=== PATIENT | female | born 1955 | race Caucasian/White ===

== ENCOUNTER 2017-01-03 21:16 | Emergency (ER) | payer SELFPAY ==
[~2017-01-03] VITALS: Ht 165.1 cm; Wt 70.2 kg
[~2017-01-03 21:16] MED LIST: CLON.1 PO; DOXY100T PO; HYDR-3580 PO; SULF1TAB47 PO
[2017-01-03 21:38] VITALS: BP 194/91; PULSE 127; RESP 20; TEMP 98.4; O2SAT 100
[2017-01-03] MEDS ORDERED: SODIUM CHLOR 0.9% 1000 ML INJ 1,000 ML IV SCH (21:49)
--- NOTE | 2017-01-03 21:56 | PD ---
HPI Chief Complaint: General Weakness Time Seen by Provider: 21:40 Travel History International Travel<30 days: No Contact w/Intl Traveler<30days: No Traveled to known affect area: No History of Present Illness HPI The patient is a 61-year-old female who presents to the emergency department with a friend for decreased mobility and generalized weakness. The friend states that the patient has been living with him for the last 2-3 years after she got kicked out of her last residents. The patient has a previous history of drug use, was using Roxicet, however, has not used opiates in the last 2-3 years she has been living with him. The friend states that the patient has had decreased mobility over the last several weeks, is not getting out of bed, and has difficulty ambulating with her walker. He states she has not been showering, combing her hair, or getting out of bed to eat over the last several days. He states that the patient wants to lie in bed, watch TV, and eating chocolate. He states when the patient tries ambulate with a walker her legs get shaky and she collapses. The patient denies any physical complaints, denies any chest pain, shortness of breath, nausea, vomiting, or abdominal pain. The patient cannot explain why her left foot is plantar flexed why her left wrist is flexed while at rest. She denies any history of CVA. [facility] Past Medical History Hypertension: Yes Menopausal: Yes Social History Alcohol Use: Yes Tobacco Use: Yes (PPD) Substance Use: Yes (pot, xanax, oxycodone) Allergies-Medications (Allergen,Severity, Reaction): Coded Allergies: No Known Allergies (Verified , 09/28/11) Reported Meds & Prescriptions Reported Meds & Active Scripts Active Review of Systems Except as stated in HPI: all other systems reviewed are Neg General / Constitutional: No: Fever Cardiovascular: No: Chest Pain or Discomfort Respiratory: No: Shortness of Breath Gastrointestinal: No: Nausea, Vomiting, Abdominal Pain Genitourinary: No: Dysuria Musculoskeletal: Positive: Weakness Neurologic: Positive: Weakness Physical Exam Narrative GENERAL: Awake, alert, pleasant 61-year-old female who appears her stated age and is in no acute respiratory distress. SKIN: Focused skin assessment warm/dry. The patient's hair is matted and unkempt. HEAD: Atraumatic. Normocephalic. EYES: Pupils equal and round. Pupils are 3 mm bilateral and reactive. ENT: No nasal bleeding or discharge. Dry mucous membranes. NECK: Trachea midline. No JVD. CARDIOVASCULAR: Regular, tachycardic with a heart rate in the 120s. RESPIRATORY: No accessory muscle use. Clear to auscultation. Breath sounds equal bilaterally. GASTROINTESTINAL: Abdomen soft, non-tender, nondistended. No rebound tenderness. MUSCULOSKELETAL: No obvious deformities. No clubbing. No cyanosis. No edema. NEUROLOGICAL: Awake and alert. No obvious cranial nerve deficits. The patient' s left ankle is plantarflex and toes are curled at rest, she is able to dorsi flex and straighten the toes, but at rest it returns to that position. She also has her left wrist flexed and certain fingers extended, she is able to extend her wrist upon command, however, goes back to flex position. Positive distal pulses. Patient is oriented to place, person, month, and year. However , she stated the president was Pres. Obama. PSYCHIATRIC: Odd affect. Data Data Last Documented VS Vital Signs Date Time Temp Pulse Resp B/P (MAP) Pulse Ox O2 Delivery O2 Flow Rate FiO2 01/03/17 22:38 113 20 99 01/03/17 22:02 146/77 (100) 01/03/17 21:38 98.4 Orders Orders Electrocardiogram (01/03/17 21:49) Complete Blood Count With Diff (01/03/17 21:49) Comprehensive Metabolic Panel (01/03/17 21:49) Creatine Kinase (Cpk) (01/03/17 21:49) Prothrombin Time / Inr (Pt) (01/03/17 21:49) Act Partial Throm Time (Ptt) (01/03/17 21:49) Troponin I (01/03/17 21:49) Thyroid Stimulating Hormone (01/03/17 21:49) Urinalysis - C+S If Indicated (01/03/17 21:49) Chest, Single Ap (01/03/17 21:49) Ct Brain W/O Iv Contrast(Rout) (01/03/17 21:49) Blood Glucose (01/03/17 21:49) Ecg Monitoring (01/03/17 21:49) Iv Access Insert/Monitor (01/03/17 21:49) Cath For Specimen (01/03/17 21:49) Oximetry (01/03/17 21:49) Sodium Chloride 0.9% Flush (Ns Flush) (01/03/17 22:00) Sodium Chlor 0.9% 1000 Ml Inj (Ns 1000 M (01/03/17 21:49) Drug Screen, Random Urine (01/03/17 21:49) Alcohol (Ethanol) (01/03/17 21:49) Lactic Acid (01/03/17 21:49) Labs Laboratory Tests Test 01/03/17 21:50 01/03/17 22:20 White Blood Count 7.7 TH/MM3 Red Blood Count 5.06 MIL/MM3 Hemoglobin 14.6 GM/DL Hematocrit 43.8 % Mean Corpuscular Volume 86.5 FL Mean Corpuscular Hemoglobin 28.9 PG Mean Corpuscular Hemoglobin Concent 33.4 % Red Cell Distribution Width 13.0 % Platelet Count 261 TH/MM3 Mean Platelet Volume 8.8 FL Neutrophils (%) (Auto) 60.3 % Lymphocytes (%) (Auto) 30.1 % Monocytes (%) (Auto) 8.1 % Eosinophils (%) (Auto) 1.1 % Basophils (%) (Auto) 0.4 % Neutrophils # (Auto) 4.7 TH/MM3 Lymphocytes # (Auto) 2.3 TH/MM3 Monocytes # (Auto) 0.6 TH/MM3 Eosinophils # (Auto) 0.1 TH/MM3 Basophils # (Auto) 0.0 TH/MM3 CBC Comment DIFF FINAL Differential Comment Prothrombin Time 10.4 SEC Prothromb Time International Ratio 0.9 RATIO Activated Partial Thromboplast Time 25.4 SEC Blood Urea Nitrogen 13 MG/DL Creatinine 1.10 MG/DL Random Glucose 112 MG/DL Total Protein 8.0 GM/DL Albumin 3.8 GM/DL Calcium Level 9.1 MG/DL Alkaline Phosphatase 104 U/L Aspartate Amino Transf (AST/SGOT) 27 U/L Alanine Aminotransferase (ALT/SGPT) 24 U/L Total Bilirubin 0.3 MG/DL Sodium Level 135 MEQ/L Potassium Level 3.6 MEQ/L Chloride Level 102 MEQ/L Carbon Dioxide Level 23.3 MEQ/L Anion Gap 10 MEQ/L Estimat Glomerular Filtration Rate 50 ML/MIN Lactic Acid Level 1.7 mmol/L Total Creatine Kinase 160 U/L Troponin I 0.05 NG/ML Thyroid Stimulating Hormone 3rd Gen 1.640 uIU/ML Ethyl Alcohol Level LESS THAN 3 MG/DL Urine Color YELLOW Urine Turbidity CLEAR Urine pH 6.0 Urine Specific [place] 1.006 Urine Protein NEG mg/dL Urine Glucose (UA) NEG mg/dL Urine Ketones NEG mg/dL Urine Occult Blood TRACE Urine Nitrite NEG Urine Bilirubin NEG Urine Leukocyte Esterase NEG Urine RBC 0-3 /hpf Urine WBC 0-2 /hpf Urine Squamous Epithelial Cells 0-5 /hpf Urine Amorphous Sediment FEW Microscopic Urinalysis Comment CATH-CULT NOT IND Urine Barbiturates Screen NEG Urine Amphetamines Screen NEG Urine Benzodiazepines Screen NEG Urine Cocaine Screen NEG Urine Cannabinoids Screen NEG MDM Medical Decision Making Medical Screen Exam Complete: Yes Emergency Medical Condition: Yes Medical Record Reviewed: Yes Interpretation(s) EKG reveals sinus tachycardia with a heart rate of 107. No ischemic changes noted. QTC 390 ms. Last Impressions Head CT 01/03/172148 Signed Impressions: Service Date/Time: Tuesday, January 03, 2017 21:56 - CONCLUSION: Large area of encephalomalacia in the right vertebral hemisphere. No acute intracranial findings identified. Michael Caraballo MD Chest X-Ray 01/03/172148 Signed Impressions: Service Date/Time: Tuesday, January 03, 2017 22:24 - CONCLUSION: No acute cardiopulmonary disease identified. Michael Caraballo MD Laboratory Tests Test 01/03/17 21:50 01/03/17 22:20 White Blood Count 7.7 TH/MM3 Red Blood Count 5.06 MIL/MM3 Hemoglobin 14.6 GM/DL Hematocrit 43.8 % Mean Corpuscular Volume 86.5 FL Mean Corpuscular Hemoglobin 28.9 PG Mean Corpuscular Hemoglobin Concent 33.4 % Red Cell Distribution Width 13.0 % Platelet Count 261 TH/MM3 Mean Platelet Volume 8.8 FL Neutrophils (%) (Auto) 60.3 % Lymphocytes (%) (Auto) 30.1 % Monocytes (%) (Auto) 8.1 % Eosinophils (%) (Auto) 1.1 % Basophils (%) (Auto) 0.4 % Neutrophils # (Auto) 4.7 TH/MM3 Lymphocytes # (Auto) 2.3 TH/MM3 Monocytes # (Auto) 0.6 TH/MM3 Eosinophils # (Auto) 0.1 TH/MM3 Basophils # (Auto) 0.0 TH/MM3 CBC Comment DIFF FINAL Differential Comment Prothrombin Time 10.4 SEC Prothromb Time International Ratio 0.9 RATIO Activated Partial Thromboplast Time 25.4 SEC Blood Urea Nitrogen 13 MG/DL Creatinine 1.10 MG/DL Random Glucose 112 MG/DL Total Protein 8.0 GM/DL Albumin 3.8 GM/DL Calcium Level 9.1 MG/DL Alkaline Phosphatase 104 U/L Aspartate Amino Transf (AST/SGOT) 27 U/L Alanine Aminotransferase (ALT/SGPT) 24 U/L Total Bilirubin 0.3 MG/DL Sodium Level 135 MEQ/L Potassium Level 3.6 MEQ/L Chloride Level 102 MEQ/L Carbon Dioxide Level 23.3 MEQ/L Anion Gap 10 MEQ/L Estimat Glomerular Filtration Rate 50 ML/MIN Lactic Acid Level 1.7 mmol/L Total Creatine Kinase 160 U/L Troponin I 0.05 NG/ML Thyroid Stimulating Hormone 3rd Gen 1.640 uIU/ML Ethyl Alcohol Level LESS THAN 3 MG/DL Urine Color YELLOW Urine Turbidity CLEAR Urine pH 6.0 Urine Specific [place] 1.006 Urine Protein NEG mg/dL Urine Glucose (UA) NEG mg/dL Urine Ketones NEG mg/dL Urine Occult Blood TRACE Urine Nitrite NEG Urine Bilirubin NEG Urine Leukocyte Esterase NEG Urine RBC 0-3 /hpf Urine WBC 0-2 /hpf Urine Squamous Epithelial Cells 0-5 /hpf Urine Amorphous Sediment FEW Microscopic Urinalysis Comment CATH-CULT NOT IND Urine Barbiturates Screen NEG Urine Amphetamines Screen NEG Urine Benzodiazepines Screen NEG Urine Cocaine Screen NEG Urine Cannabinoids Screen NEG Differential Diagnosis Differential diagnosis includes CVA, intracranial hemorrhage, hypothyroidism, hyperthyroidism, dehydration, left-sided abnormality, encephalopathy, UTI, sepsis, depression. Narrative Course IV was established, labs are drawn and sent, and the patient was placed on cardiac telemetry monitoring and continuous pulse oximetry monitoring. EKG was ordered and interpreted. CT the brain was obtained. TSH was sent to lab. The patient was administered 1 L of IV fluids. CT the brain reveals a large area of encephalomalacia, no acute events. This may be related to a previous CVA. Patient denies any history of previous CVA however, this is on the right side and she appears to have some left-sided deficits. The patient's sodium level was normal. UA is unremarkable. Lactic acid is normal. I had a discussion with the patient regarding follow-up with a psychiatrist for possible depression versus outpatient follow-up with her primary physician. I also had a discussion regarding 23 hour observation. The patient would prefer to be discharged home. She is able to answer most of her questions appropriately and appears to be able to make a sound decision. Therefore, patient will be discharged home and is advised to follow-up with her primary physician. Diagnosis Primary Impression: Generalized weakness Patient Instructions: General Instructions Additional Instructions: Please provide the patient a copy of her CT results, x-ray results, and lab results at discharge. Follow-up with her primary physician. Return if symptoms worsen or progress. Med/Other Pt SpecificInfo: No Change to Meds Disposition: 01 DISCHARGE HOME Condition: Stable Kip Nguyễn MD Jan 03, 2017 21:56
[2017-01-03] MEDS ORDERED: SODIUM CHLORIDE 0.9% FLUSH 5 ML FLUSH IV FLUSH PRN (22:00)
[2017-01-03 22:02] VITALS: BP 146/77; PULSE 116; RESP 20; O2SAT 96
[2017-01-03 22:11] LABS: AUTOMATED NEUTROPHIL # 4.7 TH/MM3 (1.8-7.7); BASOPHIL % 0.4 % (0.0-2.0); EOSINOPHIL # 0.1 TH/MM3 (0-0.4); EOSINOPHIL % 1.1 % (0.0-4.0); HEMATOCRIT 43.8 % (35.0-46.0); HEMO FLAGS DIFF FINAL; LYMPH % 30.1 % (9.0-44.0); LYMPHOCYTE # 2.3 TH/MM3 (1.0-4.8); MEAN CELL VOLUME 86.5 FL (80.0-100.0); MEAN CORPUSCULAR HEMOGLOBIN 28.9 PG (27.0-34.0); MEAN CORPUSCULAR HGB CONC 33.4 % (32.0-36.0); MONO % 8.1 % (0.0-8.0); NEUT % 60.3 % (16.0-70.0); PLATELET COUNT 261 TH/MM3 (150-450); RED BLOOD COUNT 5.06 MIL/MM3 (4.00-5.30); WHITE BLOOD COUNT 7.7 TH/MM3 (4.0-11.0)
[2017-01-03 22:20] LABS: CHLORIDE 102 MEQ/L (98-107); POTASSIUM 3.6 MEQ/L (3.5-5.1); SODIUM (NA) 135 MEQ/L (136-145)
[2017-01-03 22:23] LABS: APTT (PATIENT) 25.4 SEC (24.3-30.1); INTERNATIONAL NORMALIZED RATIO 0.9 RATIO; PROTHROMBIN TIME - PATIENT 10.4 SEC (9.8-11.6)
[2017-01-03 22:25] LABS: ANION GAP 10 MEQ/L (5-15); BICARBONATE 23.3 MEQ/L (21.0-32.0); BLOOD UREA NITROGEN 13 MG/DL (7-18)
[2017-01-03 22:26] LABS: BLOOD, URINE TRACE (NEG); GLUCOSE,URINE NEG (NEG); KETONE, URINE NEG (NEG); NITRITE,URINE NEG (NEG)
[2017-01-03 22:28] LABS: ALT (GPT) 24 U/L (10-53); AST (GOT) 27 U/L (15-37); GLOMERULAR FILTRATION RATE 50 ML/MIN (>89)
[2017-01-03 22:29] LABS: TOTAL BILIRUBIN ADULT 0.3 MG/DL (0.2-1.0)
[2017-01-03 22:30] LABS: ALKALINE PHOSPHATASE 104 U/L (45-117); CREATINE KINASE 160 U/L (26-192)
--- NOTE | 2017-01-03 22:30 | RADRPT ---
EXAM DATE/TIME: 01/03/2017 21:56 [facility] COMPARISON: No previous studies available for comparison. INDICATIONS : Altered mental status. Weakness. RADIATION DOSE: 59.22 CTDIvol (mGy) ; Patient motion MEDICAL HISTORY : Hypertension. SURGICAL HISTORY : None. ENCOUNTER: Initial ACUITY: 2 weeks PAIN SCALE: 0/10 LOCATION: cranial TECHNIQUE: Multiple contiguous axial images were obtained of the head. Using automated exposure control and adj ustment of the mA and/or kV according to patient size, radiation dose was kept as low as reasonably a chievable to obtain optimal diagnostic quality images. DICOM format image data is available electro nically for review and comparison. FINDINGS: CEREBRUM: Large area of encephalomalacia in the right temporoparietal region. Ex vacuo dilatation of the right lateral ventricle. No evidence of acute intracranial hemorrhage or extra axial fluid collection. No m ass effect or midline shift. Peace matter-white matter differentiation within normal limits. POSTERIOR FOSSA: The cerebellum and brainstem are intact. The 4th ventricle is midline. The cerebellopontine angle i s unremarkable. EXTRACRANIAL: The visualized portion of the orbits is intact. SKULL: The calvaria is intact. No evidence of skull fracture. CONCLUSION: Large area of encephalomalacia in the right vertebral hemisphere. No acute intracranial findings iden tified. Michael Caraballo MD on January 03, 2017 at 22:27 Board Certified Radiologist. This report was verified electronically.
--- NOTE | 2017-01-03 22:36 | RADRPT ---
EXAM DATE/TIME: 01/03/2017 22:24 [facility] COMPARISON: No previous studies available for comparison. INDICATIONS : Shortness of breath. MEDICAL HISTORY : Hypertension. SURGICAL HISTORY : None. ENCOUNTER: Initial ACUITY: 1 day PAIN SCORE: 0/10 LOCATION: Bilateral chest FINDINGS: Single AP view of the chest. The lungs are clear. Cardiomediastinal silhouette within normal limits. No evidence of pleural effusion or pneumothorax. CONCLUSION: No acute cardiopulmonary disease identified. Michael Caraballo MD on January 03, 2017 at 22:34 Board Certified Radiologist. This report was verified electronically.
[2017-01-03 22:45] LABS: URINE COLOR YELLOW (YELLW/STRAW); WBC, URINE 0-2 /hpf (0-5)
[2017-01-03 22:46] LABS: COMMENT (UR) CATH-CULT NOT IND; CULTURE IF INDICATED CATH CULTURE NOT IND; RBC, URINE 0-3 /hpf (0-3); SQUAMOUS EPITHELIAL CELL URINE 0-5 /hpf (0-5)
[2017-01-03 22:47] LABS: ALCOHOL LESS THAN 3 MG/DL (0-5)
[2017-01-03 23:52] VITALS: BP 142/74
--- NOTE | 2017-01-04 15:17 | EKG ---
Date Performed: 01/03/2017 Time Performed: 22:32:36 PTAGE: 61 years EKG: SINUS TACHYCARDIA POSSIBLE LEFT ATRIAL ENLARGEMENT ABNORMAL RHYTHM ECG NO PREVIOUS TRACING DOCTOR: Kain Varela Interpretating Date/Time 01/04/2017 15:15:54
== END 2017-01-03 23:56 | disposition home or self-care (01) ==
LOC: PHED 21:16
DX: R53.1 Weakness (principal); R00.0 Tachycardia, unspecified; F17.200 Nicotine dependence, unspecified, uncomplicated; G93.89 Other specified disorders of brain
CPT/HCPCS: 70450; 71010; 80053; 80307; 81001; 82550; 83605; 84443; 84484; 85025; 85610; 85730; 93005; 96360; 99285; J7030; P9612